=== PATIENT | male | born 1995 | race American Indian/Alaskan Native ===

== ENCOUNTER 2019-05-20 20:00 | Emergency (ER) | payer BC, OTHER ==
[2019-05-20 20:09] VITALS: BP 123/69
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
[2019-05-20] MEDS ORDERED: traMADol 50 MG TAB PO ONE (21:25)
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
== END 2019-05-20 22:40 | disposition home or self-care (01) ==
LOC: ED 20:00
DX: R10.9 Unspecified abdominal pain (principal); V89.2XXA Person injured in unspecified motor-vehicle accident, traffic, initial encounter; Y93.89 Activity, other specified; Y92.89 Other specified places as the place of occurrence of the external cause; Y99.8 Other external cause status
CPT/HCPCS: 74019

== ENCOUNTER 2020-07-02 18:39 | Emergency (ER) | payer BC ==
[2020-07-02] MEDS ORDERED: IBUPROFEN 800 MG TAB PO ONE (19:38)
--- NOTE | 2020-07-02 19:39 | Emergency Department Report ---
ED General Adult HPI - General Chief complaint: Fever Stated complaint: COUGHING/FEVER/WEAKNESS PUI?: Yes Source: patient Mode of arrival: Ambulatory Limitations: No Limitations - History of Present Illness Initial comments: The patient was evaluated in the emergency department for symptoms described in the history of present illness. He/she was evaluated in the context of the global COVID-19 pandemic, which necessitated consideration that the patient might be at risk for infection with the virus that causes COVID-19. Institutional protocols and algorithms that pertain to the evaluation of patients at risk for COVID-19 are in a state of rapid change based on information released by regulatory bodies including the CDC and federal and state organizations. These policies and algorithms were followed during the patient's care in the emergency department. Please note that these policies, procedures and recommendations changed on a rapid basis. 24-year-old -[place]ian male presents to the emergency room for 4-day history of fever and heavy breathing. Patient denies any shortness of breath or chest pain. Patient denies any past medical history. Patient denies any COVID- 19 contact that he is aware of. Patient states his been taking Zyrtec's Robitussin and NyQuil and a multivitamin for men. In triage patient's temperature was 102.3 and heart rate of 115. Onset/Timin -: days(s) Associated Symptoms: cough, fever/chills. denies: chest pain, headaches, nausea/vomiting, shortness of breath - Related Data Previous Rx's Medication Instructions Recorded Last Taken Type Naproxen [Naprosyn] 500 mg PO BID PRN #30 tablet 05/20/19 Unknown Rx Allergies Allergy/AdvReac Type Severity Reaction Status Date / Time No Known Allergies Allergy Unverified 05/20/19 20:23 ED Review of Systems ROS: Stated complaint: COUGHING/FEVER/WEAKNESS Other details as noted in HPI Comment: All other systems reviewed and negative ED Past Medical Hx - Past Medical History Previous Medical History?: No - Social History Smoking Status: Never Smoker Substance Use Type: None - Medications Home Medications: Home Medications Medication Instructions Recorded Confirmed Last Taken Type Naproxen [Naprosyn] 500 mg PO BID PRN #30 tablet 05/20/19 Unknown Rx ED Physical Exam - General Limitations: No Limitations General appearance: alert, in no apparent distress - Head Head exam: Present: atraumatic, normocephalic - Eye Eye exam: Present: normal appearance - ENT ENT exam: Present: mucous membranes moist - Respiratory Respiratory exam: Present: normal lung sounds bilaterally - Cardiovascular Cardiovascular Exam: Present: tachycardia - GI/Abdominal GI/Abdominal exam: Present: soft. Absent: distended, tenderness - Extremities Exam Extremities exam: Present: normal inspection, full ROM - Back Exam Back exam: Present: normal inspection, full ROM - Neurological Exam Neurological exam: Present: alert, oriented X3, normal gait - Psychiatric Psychiatric exam: Present: normal affect, normal mood - Skin Skin exam: Present: warm, dry, intact, normal color. Absent: rash ED Course Vital Signs 07/02/20 19:17 Temperature 102.3 F H Pulse Rate 115 H Respiratory 17 Rate Blood Pressure 141/83 O2 Sat by Pulse 98 Oximetry ED Medical Decision Making - Lab Data Result diagrams: 07/02/20 20:05 - Radiology Data Radiology results: report reviewed Referring Physician:ALEAH SWEETPatient Name:ALEX SINGHPatient ID:[id number] of :[id number]:MaleAccession:[id number] Date:[id number] Status:Finalized Findings [facility] [address] [place] [address] XRay Report Signed Patient: ALEX SINGH MR#: [id number] : 1995 Acct:[id number] Age/Sex: 24 / M ADM Date: 07/02/20 Loc: ED Attending Dr: Ordering Physician: KWAME CROSS Date of Service: 07/02/20 Procedure(s): XR chest routine 2V Accession Number(s): [id number] cc: KWAME CROSS Fluoro Time In Minutes: XR chest routine 2V INDICATION / CLINICAL INFORMATION: Cough, shortness of breath. COMPARISON: None available. FINDINGS: SUPPORT DEVICES: None. HEART / MEDIASTINUM: No significant abnormality. LUNGS / PLEURA: No significant pulmonary or pleural abnormality. No pneumothorax. ADDITIONAL FINDINGS: No significant additional findings. IMPRESSION: 1. No acute findings. Signer Name: Radha Butler MD Signed: 07/02/2020 8:22 PM Workstation Name: [id number] Transcribed By: SANTOS Dictated By: RADHA HOANG MD Electronically Authenticated By: RADHA HOANG MD Signed Date/Time: 07/02/202021 DD/ 20 TD/TT: - Medical Decision Making 24-year-old -[place] male presents to the emergency room for 4-day history of fever and heavy breathing. Patient denies any shortness of breath or chest pain. Patient denies any past medical history. Patient denies any C OVID-19 contact that he is aware of. Patient states his been taking Zyrtec's Robitussin and NyQuil and a multivitamin for men. In triage patient's temperature was 102.3 and heart rate of 115. Chest x-ray is negative, labs are stable. Will have repeat vital signs. Flu was negative. Ibuprofen 800 mg given for pain management and fever. IV fluids 1 L has been ordered. Critical care attestation.: If time is entered above; I have spent that time in minutes in the direct care of this critically ill patient, excluding procedure time. ED Disposition Clinical Impression: Viral syndrome Disposition: DC-01 TO HOME OR SELFCARE Is pt being admited?: No Does the pt Need Aspirin: No Condition: Stable Instructions: Hand Washing, Buuj-zb-Dyne, Viral Respiratory Infection, [id number] Additional Instructions: Your symptoms appear most consistent with a nonspecific viral syndrome. However, given this current pandemic, COVID-19 is in the differential of possibilities. I do recommend outpatient Covid 19 testing. In the meantime, isolate/quarantine yourself and stay away from anyone who is elderly, immunocompromised or chronically ill. You can use ibuprofen every 6-8 hours and Tylenol every 4-8 hours, using the dosing on the back of the bottle, as needed for any fever or body aches. Return to the emergency department with any worsening of your symptoms, development of chest pain or shortness of breath, or with any acute distress. Referrals: ELISE SANCHEZ MD [Staff Physician] - 3-5 Days Forms: Work/School Release Form(ED)
--- NOTE | 2020-07-02 20:26 | XRay Report ---
XR chest routine 2V INDICATION / CLINICAL INFORMATION: Cough, shortness of breath. COMPARISON: None available. FINDINGS: SUPPORT DEVICES: None. HEART / MEDIASTINUM: No significant abnormality. LUNGS / PLEURA: No significant pulmonary or pleural abnormality. No pneumothorax. ADDITIONAL FINDINGS: No significant additional findings. IMPRESSION: 1. No acute findings. Signer Name: Ronni Butler MD Signed: 07/02/2020 8:22 PM Workstation Name: [id number]
[2020-07-02 20:33] LABS: Basophils % (Auto) 0.3 % (0.0-1.8); Eosinophils % (Auto) 0.6 % (0.0-4.3); Hematocrit 47.5 % (35.5-45.6); Lymphocytes # (Auto) 0.8 K/mm3 (1.2-5.4); Lymphocytes % (Auto) 17.4 % (13.4-35.0); Mean Corpuscular HGB Conc 34 % (32-34); Mean Corpuscular Volume 85 fl (84-94); Monocytes # (Auto) 0.5 K/mm3 (0.0-0.8); Monocytes % (Auto) 12.3 % (0.0-7.3); Platelet Count 154 K/mm3 (140-440); Red Blood Count 5.62 M/mm3 (3.65-5.03); Red Cell Distribution Width 13.7 % (13.2-15.2)
[2020-07-02] MEDS ORDERED: SODIUM CHLORIDE 0.9% 1000 ML 1,000 ML IV ONE (20:51)
[2020-07-02 21:56] LABS: Alanine Aminotransferase 28 units/L (7-56); BUN/Creatinine Ratio 10; Blood Urea Nitrogen 13 mg/dL (9-20); Calcium 9.2 mg/dL (8.4-10.2)
[2020-07-02 22:16] VITALS: BP 143/81
== END 2020-07-03 00:30 | disposition home or self-care (01) ==
LOC: ED 18:39
DX: B34.9 Viral infection, unspecified (principal); Z79.899 Other long term (current) drug therapy
CPT/HCPCS: 36415; 71046; 80053; 85025; 87400; 96360; 99284; J7030

== ENCOUNTER 2022-02-20 23:11 | Emergency (ER) | payer BC, OTHER ==
[2022-02-20 23:37] VITALS: BP 130/63
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
== END 2022-02-21 11:18 | disposition home or self-care (01) ==
LOC: ED 23:11
DX: M79.10 Myalgia, unspecified site (principal); V89.2XXA Person injured in unspecified motor-vehicle accident, traffic, initial encounter; Y93.89 Activity, other specified; Y92.89 Other specified places as the place of occurrence of the external cause; Y99.8 Other external cause status
CPT/HCPCS: 72100; 99283